=== PATIENT | male | born 1935 | race Caucasian/White ===

== ENCOUNTER 2024-04-08 07:43 | Day surgery (SDC) | payer MEDICARE, MEDICAID ==
[2024-04-08] MEDS ORDERED: Propofol 200 MG/20 ML SDV ONE (08:34)
[2024-04-08] MEDS ORDERED: fentaNYL 50 MCG/ML SDV ONE (08:35)
[2024-04-08] MEDS: Sodium Chloride 0.9% 1,000 ML IV SCH (09:00)
== END 2024-04-08 11:25 | disposition home or self-care (01) ==
LOC: JP.SDS 07:43
PROVIDERS: ATTEND Surgery
DX: Z12.11 Encounter for screening for malignant neoplasm of colon (principal); D12.0 Benign neoplasm of cecum; K22.70 Barrett's esophagus without dysplasia; I25.10 Atherosclerotic heart disease of native coronary artery without angina pectoris; I48.11 Longstanding persistent atrial fibrillation; E78.2 Mixed hyperlipidemia; I12.9 Hypertensive chronic kidney disease with stage 1 through stage 4 chronic kidney disease, or unspecified chronic kidney disease; N18.32 Chronic kidney disease, stage 3b; Z95.1 Presence of aortocoronary bypass graft; Z79.01 Long term (current) use of anticoagulants; Z79.899 Other long term (current) drug therapy
CPT/HCPCS: 00813; 43239; 45385; J2704; J3010; J7030; 88305

== ENCOUNTER 2024-04-08 14:54 | Emergency (ER) | payer MEDICARE, MEDICAID ==
[2024-04-08] MEDS ORDERED: Sodium Chloride 0.9% 10 ML Syringe FLUSH PRN (15:41)
[2024-04-08] MEDS ORDERED: Iopamidol 612 MG/ML 100 ML Bottle IV PRN (15:41)
[2024-04-08] MEDS ORDERED: Sodium Chloride 0.9% 80 ML IV ONE (15:41)
[2024-04-08 15:42] LABS: BASOPHILS PERCENT AUTO 0.3 % (0.1-1.3); EOSINOPHILS ABSOLUTE AUTO 0.06 K/uL (0.00-0.40); EOSINOPHILS PERCENT AUTO 0.8 % (0.0-5.4); HEMATOCRIT 29.4 % (38.4-49.7); HEMOGLOBIN 9.5 g/dL (12.9-16.9); IMMATURE GRAN PERCENT AUTO 0.3 % (0.0-0.7); LYMPHOCYTES ABSOLUTE AUTO 0.27 K/uL (0.8-3.3); LYMPHOCYTES PERCENT AUTO 3.6 % (11.4-47.7); MEAN CORPUSCULAR HEMOGLOBIN 26.4 pg (31.6-35.5); MEAN CORPUSCULAR HGB CONC 32.3 g/dL (31.6-35.5); MEAN CORPUSCULAR VOLUME 81.7 fL (81.4-99.0); MONOCYTES PERCENT AUTO 2.7 % (3.3-12.6); NEUTROPHILS ABSOLUTE AUTO 6.93 K/uL (1.0-7.6); NEUTROPHILS PERCENT AUTO 92.3 % (40.0-78.1); PLATELET COUNT,PLT 311 K/uL (130-375); WHITE BLOOD CELL COUNT,WBC 7.5 K/uL (3.2-11.0)
[2024-04-08 15:43] LABS: BASOPHILS ABSOLUTE AUTO 0.02 K/uL (0.00-0.10); IMMATURE GRAN ABSOLUTE AUTO 0.02 K/uL (0.00-0.23)
[2024-04-08] MEDS: Sodium Chloride 0.9% 1,000 ML IV ONE (15:44)
[2024-04-08] MEDS: HYDROmorphone 0.5 MG/0.5 ML Syringe IVPUSH ONE (15:45)
[2024-04-08 16:06] LABS: A/G RATIO 1.1 (1.2-2.2); ALANINE AMINOTRANSFERASE,ALT 19 U/L (12-78); ALBUMIN 3.4 g/dL (3.4-5.0); ALKALINE PHOSPHATASE 82 U/L (46-116); ANION GAP 18.5 mmol/L (5.0-14.0); ASPARTATE AMNIOTRANSFERASE,AST 20 U/L (15-37); BILIRUBIN TOTAL 0.5 mg/dL (0.2-1.0); BLOOD UREA NITROGEN,BUN 48 mg/dL (7-18); C-REACTIVE PROTEIN < 0.50 mg/dL (<0.50); CALCIUM 8.6 mg/dL (8.5-10.1); CARBON DIOXIDE,CO2 20 mmol/L (21-32); CHLORIDE,CL 103 mmol/L (100-108); CREATININE 2.1 mg/dL (0.8-1.3); ESTIMATED GFR 30 mL/min (>60); GLUCOSE RANDOM 130 mg/dL (74-106); POTASSIUM,K 4.5 mmol/L (3.6-5.2); PROTEIN TOTAL,TP 6.6 g/dL (6.4-8.2); SODIUM,NA 137 mmol/L (140-148)
== END 2024-04-08 18:52 | disposition home or self-care (01) ==
LOC: JP.ED 14:54
DX: R10.11 Right upper quadrant pain (principal); I11.0 Hypertensive heart disease with heart failure; I50.9 Heart failure, unspecified; I25.2 Old myocardial infarction; I25.10 Atherosclerotic heart disease of native coronary artery without angina pectoris; Z88.0 Allergy status to penicillin; Z88.8 Allergy status to other drugs, medicaments and biological substances; Z79.899 Other long term (current) drug therapy; Z90.49 Acquired absence of other specified parts of digestive tract
CPT/HCPCS: 36415; 74176; 80053; 83605; 85025; 86140; 96361; 96374; 99284; J1170; J7030

== ENCOUNTER 2024-05-02 14:31 | Emergency (ER) | payer MEDICARE, MEDICAID ==
[2024-05-02] MEDS: Methocarbamol 500 MG Tab PO ONE (15:58)
== END 2024-05-02 18:00 | disposition home or self-care (01) ==
LOC: JP.ED 14:31
DX: M54.2 Cervicalgia (principal); I25.10 Atherosclerotic heart disease of native coronary artery without angina pectoris; E78.00 Pure hypercholesterolemia, unspecified; I10 Essential (primary) hypertension; K21.9 Gastro-esophageal reflux disease without esophagitis; Z90.49 Acquired absence of other specified parts of digestive tract; Z87.891 Personal history of nicotine dependence; Z79.899 Other long term (current) drug therapy; Z79.891 Long term (current) use of opiate analgesic; Z88.8 Allergy status to other drugs, medicaments and biological substances; Z88.0 Allergy status to penicillin
CPT/HCPCS: 82947; 93880; 99283; A9270